=== PATIENT | female | born 1995 | race African-American/Black ===

== ENCOUNTER 2020-09-16 14:09 | Emergency (ER) | payer MEDICAID, OTHER ==
[~2020-09-16] VITALS: Ht 170.2 cm; Wt 68.0 kg
[2020-09-16] MEDS ORDERED: LEVETIRACETAM 500MG/5ML CUP PO ONE (15:00)
[2020-09-16] MEDS ORDERED: KEPP500 MT (15:36)
[2020-09-16 16:48] LABS: BASOPHILS % 0.9 % (0.0-2.0); EOSINOPHILS % 2.8 % (0.0-5.0); HEMATOCRIT. 36.3 % (36.0-48.0); HEMOGLOBIN. 12.1 g/dL (12.0-16.0); LYMPHOCYTES % 27.4 % (20.0-50.0); MEAN CORPUSCULAR HEMOGLOBIN 28.4 pg (28.0-32.0); MEAN CORPUSCULAR VOLUME 84.8 fL (81.0-99.0); MEAN PLATELET VOLUME 7.1 fl (7.4-10.4); MONOCYTES % 8.2 % (2.0-8.0); NEUTROPHILS % 60.7 % (40.0-76.0); PLATELET 341 x1000/uL (130-400); RED BLOOD CELL COUNT 4.28 mill/uL (4.2-5.4); RED CELL DISTRIBUTION WIDTH 15.1 % (11.6-14.6)
[2020-09-16 16:53] LABS: CHLORIDE 109 mEq/L (98-107)
[2020-09-16 18:15] VITALS: BP 121/78
== END 2020-09-16 18:40 ==
LOC: ER 14:09 → EDBD 14:09 → ER 18:40
DX: R56.9 Unspecified convulsions (principal); I10 Essential (primary) hypertension; F31.9 Bipolar disorder, unspecified; Z91.14 Patient's other noncompliance with medication regimen
CPT/HCPCS: 36415; 80048; 84702; 85025; 99283

== ENCOUNTER 2024-12-09 14:06 | Emergency (ER) | payer MEDICAID, OTHER ==
[~2024-12-09] VITALS: Ht 177.8 cm; Wt 93.0 kg
[~2024-12-09 14:06] MED LIST: KEPP500 MT
[2024-12-09 14:08] VITALS: O2SAT 100
[2024-12-09 14:16] VITALS: BP 124/63; PULSE 86; RESP 16; TEMP 36.9; O2SAT 100
[2024-12-09 14:47] LABS: BASOPHILS % 1.1 % (0.0-2.0); EOSINOPHILS % 2.8 % (0.0-5.0); HEMATOCRIT. 33.1 % (36.0-48.0); HEMOGLOBIN. 11.2 g/dL (12.0-16.0); LYMPHOCYTES % 45.8 % (20.0-50.0); MEAN PLATELET VOLUME 8.3 fl (7.4-10.4); MONOCYTES % 8.5 % (2.0-8.0); NEUTROPHILS % 41.8 % (40.0-76.0); PLATELET 303 x1000/uL (130-400); RED BLOOD CELL COUNT 3.77 mill/uL (4.2-5.4); RED CELL DISTRIBUTION WIDTH 14.0 % (11.6-14.6)
[2024-12-09 14:59] LABS: CREATININE 0.9 mg/dL (0.6-1.0); UREA NITROGEN BLOOD 8 mg/dL (9-23)
[2024-12-09 15:01] LABS: B-HCG QUANTITATIVE 123 mIU/mL (<6)
== END 2024-12-09 18:01 | disposition home or self-care (01) ==
LOC: ER 14:06
DX: O20.9 Hemorrhage in early pregnancy, unspecified (principal); F15.90 Other stimulant use, unspecified, uncomplicated; F31.9 Bipolar disorder, unspecified; Z79.899 Other long term (current) drug therapy; Z91.018 Allergy to other foods; N89.8 Other specified noninflammatory disorders of vagina; Z3A.01 Less than 8 weeks gestation of pregnancy
CPT/HCPCS: 36415; 76801; 80048; 84702; 85025; 86850; 86900; 99284